=== PATIENT | male | born 1975 | race Caucasian/White ===

== ENCOUNTER 2021-10-22 10:16 | Outpatient (REF) | payer MEDICARE, MEDICAID, SELFPAY ==
[2021-10-22 13:22] LABS: MANUAL DIFF FLAG NO
[2021-10-22 13:32] LABS: Basophils Percent Auto 0.5 % (0-2); Eosinophils Absolute Auto 0.1 X10*3/uL (0.0-0.4); Eosinophils Percent Auto 0.9 % (0-4); Hematocrit 49.1 % (42.0-52.0); Hemoglobin 16.9 g/dl (14.0-18.0); Imm Gran Abs Auto 0.05 X10*3/uL (0.00-0.03); Imm Gran Pct Auto 0.6 % (0.0-0.4); Lymphocytes Absolute Auto 3.1 X10*3/uL (1.2-4.9); Lymphocytes Percent Auto 35.9 % (20-40); Mean Corpuscular HGB Conc 34.4 g/dl (31.0-36.0); Mean Corpuscular Hemoglobin 30.8 pg (27.0-33.0); Mean Corpuscular Volume 89.6 fL (80.0-98.0); Mean Platelet Volume 10.8 fL (9.4-12.4); Monocytes Absolute Auto 0.6 X10*3/uL (0.1-1.2); Monocytes Percent Auto 7.3 % (2-11); Neutrophils Absolute Auto 4.7 x10*3/uL (2.0-8.3); Neutrophils Percent Auto 54.8 % (45-73); Platelet Count 292 X10*3/uL (160-400); Red Blood Count 5.48 X10*6/uL (4.60-5.80); Red Cell Distribution Width 12.1 % (11.0-16.0); White Blood Count 8.5 X10*3/uL (4.8-10.8)
[2021-10-22 13:53] LABS: Alanine Aminotransferase 63 U/L (0-40); Albumin Level 4.6 g/dL (3.5-5.0); Alkaline Phosphatase 59 U/L (39-117); Anion Gap 13 (12-20); Aspartate Amino Transferase 37 U/L (5-37); Bilirubin Total 0.9 mg/dL (0.0-1.0); Blood Urea Nitrogen 17 mg/dL (9-16); Calcium 10.2 mg/dL (8.4-10.2); Carbon Dioxide 26 mmol/L (22-29); Chloride 104 mmol/L (96-108); Cholesterol 168 mg/dL; Estimated Glomerular Filt Rate > 60; Glucose Fasting 127 mg/dL (60-99); HDL Cholesterol 41 mg/dL; LDL Cholesterol Calculated 87 mg/dl; Potassium 4.2 mmol/L (3.3-5.1); Sodium 139 mmol/L (135-145); Total Protein 7.8 g/dL (6.5-8.0); Triglycerides 204 mg/dL
[2021-10-22 14:14] LABS: Prostate Specific Antigen Scr 1.07 ng/mL (<0.05-4.0)
== END 2021-10-22 10:17 | disposition home or self-care (01) ==
LOC: HO.10HDL 10:16
PROVIDERS: Visit Provider Internal Medicine
DX: Z00.00 Encounter for general adult medical examination without abnormal findings (principal); Z12.5 Encounter for screening for malignant neoplasm of prostate
CPT/HCPCS: 36415; 80053; 80061; 84153; 85025

== ENCOUNTER → 2021-11-13 15:09 | Outpatient (BNVA) | payer MEDICARE, MEDICAID, SELFPAY | PROVIDERS: PCP Internal Medicine; Referring Provider Internal Medicine; Visit Provider Surgery | DX: L98.9 Disorder of the skin and subcutaneous tissue, unspecified (principal) | CPT/HCPCS: 99202 ==

== ENCOUNTER 2021-12-10 07:52 | Outpatient (REF) | payer MEDICARE, MEDICAID, SELFPAY ==
[2021-12-10 08:00] VITALS: BMI 34.8
[2021-12-10 08:01] VITALS: BP 130/75; PULSE 94; RESP 16; TEMP 36.7; O2SAT 98
[2021-12-10 08:30] VITALS: BP 143/85; PULSE 93; RESP 16; O2SAT 98
--- NOTE | 2021-12-10 08:30 | W.PM.OPN ---
Operative Note Operative Note Date of Service: 12/10/21 Narrative: Preop diagnosis: Multiple skin lesions, around the neck neck, left chest wall, left and right axilla Postop diagnosis: As above Procedure: Excision x1 the chest wall, cauterization of multiple skin lesions, x8 on the left and right axilla and the neck under local anesthesia Surgeon: Migue Davila MD The patient is a 46-year-old male with note of multiple skin lesions on the left chest wall, neck and axilla. There was note of a 1 cm fibromatous lesion on the left chest wall. There multiple papillomatous lesions varying in size from about 4 mm to 2 mm, on the left and right axilla in the neck. He wanted to proceed with excision and cauterization. He is aware of the risks, benefits and alternatives . He was brought to the minor procedure room. He was placed. The lesion in the left chest wall was prepped and draped. Lidocaine 1% was used for local anesthesia. An elliptical incision around this 1 cm fibromatous lesion blade 15. This was carried down through the full-thickness skin and part of subcutaneous layer until this was completely excised. This was sent as specimen. I closed the incision with full-thickness nylon 3-0 interrupted sutures. Dressings were applied. The area of the left axilla was prepped and draped. There was note of a papillomatous lesion on the left axilla about 3 mm in size. This was excised using Metzenbaum scissors and the excision site was cauterized for hemostasis. This specimen was sent for pathology. were multiple other small papillomatous lesions about 1-2 mm in size which were cauterized as well. The area of the right axilla was also prepped and draped. Again I cauterized 2 lesions which were about 2-3 mm in size each. I then prepped and draped multiple skin lesions on around the neck. I infiltrated this with lidocaine 1% and cauterized all of these. All in all, about 8 lb were cauterized around the neck, left and right axilla. He tolerated procedure well. There were no complications noted. He will be seen in the office for follow-up for wound check discharge instructions were given.
== END 2021-12-10 07:53 | disposition home or self-care (01) ==
LOC: HO.MS 07:52
PROVIDERS: PCP Internal Medicine; Visit Provider Surgery
PROC: (CPT 17110; principal; 2021-12-10 08:00)
DX: D18.01 Hemangioma of skin and subcutaneous tissue (principal); L91.8 Other hypertrophic disorders of the skin; D23.5 Other benign neoplasm of skin of trunk
CPT/HCPCS: 17110; 11200; 11401; 88304; 88305

== ENCOUNTER → 2021-12-24 10:17 | Outpatient (BNVA) | payer MEDICARE, MEDICAID, SELFPAY | PROVIDERS: PCP Internal Medicine; Referring Provider Internal Medicine; Visit Provider Surgery | DX: L98.9 Disorder of the skin and subcutaneous tissue, unspecified (principal) | CPT/HCPCS: 99212 ==

== ENCOUNTER 2022-01-07 10:48 | Outpatient (REF) | payer MEDICARE, MEDICAID, SELFPAY ==
[2022-01-07 14:07] LABS: Estimated Average Glucose 154 mg/dL
[2022-01-07 14:10] LABS: Appearance Urine CLOUDY; Color Urine YELLOW; Glucose Urine UA 250 MG/DL (NEG); Leukocyte Esterase Urine NEG (NEG); Nitrite Urine NEG (NEG); Specific Gravity - Urine >= 1.030 (1.005-1.025); Urine Blood NEG (NEG); Urine Ketones NEG (NEG); Urine Protein NEG (NEG-TRACE)
[2022-01-07 14:13] LABS: Alanine Aminotransferase 51 U/L (0-40); Anion Gap 12 (12-20); Aspartate Amino Transferase 31 U/L (5-37); Blood Urea Nitrogen 15 mg/dL (9-16); Calcium 9.7 mg/dL (8.4-10.2); Carbon Dioxide 27 mmol/L (22-29); Chloride 104 mmol/L (96-108); Estimated Glomerular Filt Rate > 60; Glucose Random 167 mg/dL (60-115); Potassium 4.5 mmol/L (3.3-5.1); Sodium 138 mmol/L (135-145)
[2022-01-07 14:28] LABS: Creatinine Urine 173.44 mg/dL; Microalbum/Creatinine Ratio Ur 9.8 ug/mg cr
== END 2022-01-07 10:49 | disposition home or self-care (01) ==
LOC: HO.10HDL 10:48
PROVIDERS: Visit Provider Internal Medicine
DX: R73.03 Prediabetes (principal); M54.9 Dorsalgia, unspecified; K21.9 Gastro-esophageal reflux disease without esophagitis; R94.5 Abnormal results of liver function studies
CPT/HCPCS: 36415; 80048; 81003; 82043; 83036; 84450; 84460; 87086

== ENCOUNTER → 2023-03-04 10:32 | Outpatient (BNVA) | payer OTHER, SELFPAY | PROVIDERS: PCP Internal Medicine; Visit Provider Urology | DX: E11.69 Type 2 diabetes mellitus with other specified complication (principal); N52.1 Erectile dysfunction due to diseases classified elsewhere | CPT/HCPCS: 99202 ==

== ENCOUNTER 2023-06-08 09:01 | Outpatient (REF) | payer OTHER, SELFPAY ==
[2023-06-08 10:36] LABS: MANUAL DIFF FLAG NO
[2023-06-08 10:50] LABS: Basophils Absolute Auto 0.1 X10*3/uL (0.0-0.2); Basophils Percent Auto 0.7 % (0-2); Eosinophils Absolute Auto 0.1 X10*3/uL (0.0-0.4); Eosinophils Percent Auto 1.5 % (0-4); Hematocrit 48.4 % (42.0-52.0); Hemoglobin 16.6 g/dl (14.0-18.0); Imm Gran Abs Auto 0.03 X10*3/uL (0.00-0.03); Imm Gran Pct Auto 0.4 % (0.0-0.4); Lymphocytes Absolute Auto 2.5 X10*3/uL (1.2-4.9); Lymphocytes Percent Auto 35.2 % (20-40); Mean Corpuscular HGB Conc 34.3 g/dl (31.0-36.0); Mean Corpuscular Hemoglobin 30.5 pg (27.0-33.0); Mean Platelet Volume 10.3 fL (9.4-12.4); Monocytes Absolute Auto 0.6 X10*3/uL (0.1-1.2); Monocytes Percent Auto 7.6 % (2-11); Neutrophils Absolute Auto 3.9 x10*3/uL (2.0-8.3); Neutrophils Percent Auto 54.6 % (45-73); Platelet Count 243 X10*3/uL (160-400); Red Blood Count 5.44 X10*6/uL (4.60-5.80); Red Cell Distribution Width 12.1 % (11.0-16.0); White Blood Count 7.2 X10*3/uL (4.8-10.8)
[2023-06-08 11:14] LABS: Alanine Aminotransferase 23 U/L (0-40); Alkaline Phosphatase 48 U/L (39-117); Anion Gap 9 (12-20); Aspartate Amino Transferase 19 U/L (5-37); Bilirubin Total 0.7 mg/dL (0.0-1.0); Blood Urea Nitrogen 23 mg/dL (9-16); Carbon Dioxide 29 mmol/L (22-29); Chloride 106 mmol/L (96-108); Cholesterol 159 mg/dL; Estimated Glomerular Filt Rate > 60; Glucose Fasting 112 mg/dL (60-99); HDL Cholesterol 46 mg/dL; LDL Cholesterol Calculated 75 mg/dl; Potassium 4.3 mmol/L (3.3-5.1); Sodium 140 mmol/L (135-145); Total Protein 7.1 g/dL (6.5-8.0); Triglycerides 191 mg/dL
[2023-06-08 11:15] LABS: Estimated Average Glucose 105 mg/dL; Hemoglobin A1C 149.9812 umol/L; Hemoglobin A1c % 5.3 %
[2023-06-08 11:20] LABS: Prostate Specific Antigen 2.58 ng/mL (<0.05-4.0)
[2023-06-08 11:48] LABS: Creatinine Urine 145.58 mg/dL
[2023-06-13 13:17] LABS: Testosterone, Free 86.3 pg/mL (35.0-155.0); Testosterone, Total 464 ng/dL (250-1100)
== END 2023-06-08 09:02 | disposition home or self-care (01) ==
LOC: HO.10HDL 09:01
PROVIDERS: Absent Provider Internal Medicine; Visit Provider Urology
DX: Z00.00 Encounter for general adult medical examination without abnormal findings (principal); Z12.5 Encounter for screening for malignant neoplasm of prostate; E11.69 Type 2 diabetes mellitus with other specified complication; N52.1 Erectile dysfunction due to diseases classified elsewhere
CPT/HCPCS: 36415; 80053; 80061; 82043; 83036; 84153; 84402; 84403; 85025

== ENCOUNTER 2023-08-03 13:39 | Outpatient (AMB) | payer MEDICARE, SELFPAY ==
--- NOTE | 2023-08-03 14:25 | A.OFFVIS_ITS ---
Intake Intake Visit Reasons: 3M PSA/Testo(set) Intake Note: Patient is present for Telephone Urology Med:Tadalafil Antibiotic Allergy: None Blood Thinner: None Pharmacy: [facility] Allergies naproxen [Aleve] Allergy (Unknown, Verified 08/03/23 14:26) unknown Medication List - Last Reconciled 08/03/23 by Darryl Eubanks MD cyclobenzaprine 10 mg PO TID meloxicam 1 tab PO DAILY metformin 1 tab PO DAILY omeprazole 1 cap PO BID PRN tadalafil 5 mg PO DAILY 90 days tadalafil 20 mg PO ONCE PRN 30 days HPI HPI Comments History of Present Illness Details Brandon is a very pleasant male. . He is a patient of Dr. Feliciano . He is seen for the following urologic conditions - erectile dysfunction Telemedicine Evaluation 15 min Consultation [employer] Matt Video attempted Partial response Will increase to 20 mg on demand as well as 5 mg daily 3 month follow-up Erectile Dysfunction in association with diabetes He presents today for - followup evaluation erectile dysfunction Current treatment includes - [id number] At the time of initial evaluation he experiences - partial and adequate for vaginal penetration - under rapid detumescence Symptoms have been present for/since - progressive since age 46 Nocturnal erections do occur Associated Medical Conditions include diabetes Physical Performance Status is able to walk 200 yd and can ascend 2 flights of stairs easily without breathlessness Atherosclerosis Cardiovascular Disease Risk - not fully complete Medications include(s) metformin Investigations include HbA1c 7.0, 06/06 T4 60 for, free T 86, PSA 2.5 Therapeutic plan includes - continue daily tadalafil add on demand PFSH Medical History Back pain Diabetes Benign skin lesion of multiple sites Surgical History History of surgical removal of skin lesion (~12/10/21) Review of Systems Const All systems reviewed & are unremarkable except as noted in HPI and below Reports no additional complaints Resp Reports no additional complaints GI Reports no additional complaints Reports as per HPI Musc Reports no additional complaints Physical Exam Telemedicine evaluation Appropriate responses Regular breathing rate and rhythm HEENT Head: Yes normal to inspection Ears: hearing grossly normal bilaterally Eyes General: appearance normal, both eyes and all related structures Neck Neck: Yes normal visual inspection Chest Chest palpation & inspection: normal inspection of the chest Resp Effort & Inspection: normal respiratory effort and able to speak in complete sentences Assessment & Plan Assessment & Plan (1) Erectile dysfunction associated with type 2 diabetes mellitus: Code(s): E11.69 - Type 2 diabetes mellitus with other specified complication; N52.1 - Erectile dysfunction due to diseases classified elsewhere Plan Trial daily tadalafil with 20 mg on demand Medications: New tadalafil On demand medication take 60 minutes before intended activity 20 mg PO ONCE PRN 30 tabs 0RF sexual activity 30 days E11.69 - Type 2 diabetes mellitus with other specified complication, N52.1 - Erectile dysfunction due to diseases classified elsewhere Refilled tadalafil 5 mg PO DAILY 90 tabs 1RF sexual activity 90 days E11.69 - Type 2 diabetes mellitus with other specified complication, N52.1 - Erectile dysfunction due to diseases classified elsewhere Patient Instructions: Imaging studies, laboratory and physical exam results were discussed and reviewed in detail. No major barriers to patient understanding were identified. An opportunity to ask questions regarding the treatment plan was provided. All questions were answered. The patient expressed understanding and agreement with the above treatment plan. The patient is aware they should contact our office by phone for worsening of their current condition or the appearance of new urologic symptoms. Compliance is encouraged with any medications and followup testing that is ordered. It is a privilege to participate in the urologic care of your patient. If you have any questions or concerns regarding treatment for the above conditions, or other urologic issues, please do not hesitate to contact me. The office telephone contact is [phone]. This note is constructed using voice recognition software. While every effort has been made to ensure accuracy production planning manager errors may have been included. Yours sincerely, Dr Darryl Eubanks MD, [facility] - Urology Providers of Expert, Compassionate Care for the Genitourinary System Telehealth Telehealth Location of provider rendering services: practice address Location of patient: address on file Patient Identification confirmed using: Name, : Yes Telehealth method: video Patient verbally consented to treatment: Yes Patient verbally consented to billing insurance company: Yes Patient informed of any privacy concerns related to visit: Yes Coding Level of Care Code Tele Est Pt Level 4 (21985) Diagnoses Erectile dysfunction associated with type 2 diabetes mellitus E11.69; N52.1
== END 2023-08-03 16:07 | disposition home or self-care (01) ==
LOC: HO.HUSH 13:39
PROVIDERS: PCP Internal Medicine; Visit Provider Urology
DX: E11.69 Type 2 diabetes mellitus with other specified complication (principal); N52.1 Erectile dysfunction due to diseases classified elsewhere
CPT/HCPCS: 99214

== ENCOUNTER → 2023-08-03 13:39 | Outpatient (BNVA) | payer MEDICARE, SELFPAY | PROVIDERS: PCP Internal Medicine; Visit Provider Urology ==

== ENCOUNTER 2023-11-03 12:29 | Outpatient (AMB) | payer MEDICARE, MEDICAID, SELFPAY ==
--- NOTE | 2023-11-03 12:29 | A.OFFVIS_ITS ---
Intake Intake Visit Reasons: 3 month (per Dr Meneses) Intake Note: Patient is Present for Telephone Follow Up Urology Med: Tadalafil 5 MG/ 20MG Antibiotic Allergy: None Blood Thinner: None Allergies naproxen [Aleve] Allergy (Unknown, Verified 11/03/23 12:30) unknown Medication List - Last Reconciled 11/03/23 by Darryl Meneses MD cyclobenzaprine 10 mg PO TID meloxicam 1 tab PO DAILY metformin 1 tab PO DAILY omeprazole 1 cap PO BID PRN tadalafil 5 mg PO DAILY 90 days tadalafil 20 mg PO ONCE PRN 30 days HPI HPI Comments History of Present Illness Details Brandon is a very pleasant male. . He is a patient of Dr. Feliciano . He is seen for the following urologic conditions - erectile dysfunction Telemedicine Evaluation 15 min Consultation [employer] Matt Video attempted Follow-up 5 mg daily tadalafil with on demand 20mg Good response Refills provided 6 month follow-up Erectile Dysfunction in association with diabetes He presents today for - followup evaluation erectile dysfunction Current treatment includes - [id number] At the time of initial evaluation he experiences - partial and adequate for vaginal penetration - under rapid detumescence Symptoms have been present for/since - progressive since age 46 Nocturnal erections do occur Associated Medical Conditions include diabetes Physical Performance Status is able to walk 200 yd and can ascend 2 flights of stairs easily without breathlessness Atherosclerosis Cardiovascular Disease Risk - not fully complete Medications include(s) metformin Investigations include HbA1c 7.0, 06/06 T460 for, free T 86, PSA 2.5 Therapeutic plan includes - continue daily tadalafil add on demand PFS Medical History Back pain Diabetes Benign skin lesion of multiple sites Surgical History History of surgical removal of skin lesion (~12/10/21) Review of Systems Const All systems reviewed & are unremarkable except as noted in HPI and below Reports no additional complaints Resp Reports no additional complaints GI Reports no additional complaints Reports as per HPI Musc Reports no additional complaints Physical Exam Telemedicine evaluation Appropriate responses Regular breathing rate and rhythm HEENT Head: Yes normal to inspection Ears: hearing grossly normal bilaterally Eyes General: appearance normal, both eyes and all related structures Neck Neck: Yes normal visual inspection Chest Chest palpation & inspection: normal inspection of the chest Resp Effort & Inspection: normal respiratory effort and able to speak in complete sentences Assessment & Plan Assessment & Plan (1) Erectile dysfunction associated with type 2 diabetes mellitus: Code(s): E11.69 - Type 2 diabetes mellitus with other specified complication; N52.1 - Erectile dysfunction due to diseases classified elsewhere Plan Six month follow-up Medications: Refilled tadalafil On demand medication take 60 minutes before intended activity 20 mg PO ONCE 30 days PRN 30 tabs 2RF sexual activity E11.69 - Type 2 diabetes mellitus with other specified complication, N52.1 - Erectile dysfunction due to diseases classified elsewhere Patient Instructions: Imaging studies, laboratory and physical exam results were discussed and reviewed in detail. No major barriers to patient understanding were identified. An opportunity to ask questions regarding the treatment plan was provided. All questions were answered. The patient expressed understanding and agreement with the above treatment plan. The patient is aware they should contact our office by phone for worsening of their current condition or the appearance of new urologic symptoms. Compliance is encouraged with any medications and followup testing that is ordered. It is a privilege to participate in the urologic care of your patient. If you have any questions or concerns regarding treatment for the above conditions, or other urologic issues, please do not hesitate to contact me. The office telephone contact is [phone]. This note is constructed using voice recognition software. While every effort has been made to ensure accuracy movement assembly final inspector errors may have been included. Yours sincerely, Dr Darryl Meneses MD, [facility] - Urology Providers of Expert, Compassionate Care for the Genitourinary System Telehealth Telehealth Location of provider rendering services: practice address Location of patient: address on file Patient Identification confirmed using: Name, : Yes Telehealth method: video Patient verbally consented to treatment: Yes Patient verbally consented to billing insurance company: Yes Patient informed of any privacy concerns related to visit: Yes Coding Level of Care Code Tele Est Pt Level 3 (67217) Diagnoses Erectile dysfunction associated with type 2 diabetes mellitus E11.69; N52.1
== END 2023-11-03 15:18 | disposition home or self-care (01) ==
LOC: HO.HUSH 12:29
PROVIDERS: PCP Internal Medicine; Visit Provider Urology
DX: E11.69 Type 2 diabetes mellitus with other specified complication (principal); N52.1 Erectile dysfunction due to diseases classified elsewhere
CPT/HCPCS: 99213

== ENCOUNTER → 2023-11-03 12:29 | Outpatient (BNVA) | payer MEDICARE, SELFPAY | PROVIDERS: PCP Internal Medicine; Visit Provider Urology ==

== ENCOUNTER 2024-05-05 13:39 | Outpatient (AMB) | payer MEDICARE, SELFPAY ==
--- NOTE | 2024-05-05 13:35 | MHC.OFFVIS ---
Intake Visit Reasons: 6m follow up Intake Note: Pt presents to the office as a telehealth for a 6 month follow up. Urology meds: Tadalafil Blood thinners: None Allergies naproxen [Aleve] Allergy (Unknown, Verified 05/05/24 13:35) unknown HPI Comments Details: Brandon is a very pleasant male. . He is a patient of Dr. Feliciano . He is seen for the following urologic conditions - erectile dysfunction Telemedicine Evaluation 15 min Consultation [employer] Matt Video attempted Follow-up 5 mg daily tadalafil with on demand 20mg Good response Refills provided 6 month follow-up labs/office - prior PSA elevated Erectile Dysfunction in association with diabetes He presents today for - followup evaluation erectile dysfunction Current treatment includes - [id number] At the time of initial evaluation he experiences - partial and adequate for vaginal penetration - under rapid detumescence Symptoms have been present for/since - progressive since age 46 Nocturnal erections do occur Associated Medical Conditions include diabetes Physical Performance Status is able to walk 200 yd and can ascend 2 flights of stairs easily without breathlessness Atherosclerosis Cardiovascular Disease Risk - not fully complete Medications include(s) metformin Investigations include HbA1c 7.0, 06/06 T460 for, free T 86, PSA 2.5 Therapeutic plan includes - continue daily tadalafil add on demand PFSH Medical History Back pain Diabetes Benign skin lesion of multiple sites Surgical History History of surgical removal of skin lesion (~12/10/21) Review of Systems Const All systems reviewed & are unremarkable except as noted in HPI and below Reports no additional complaints Resp Reports no additional complaints GI Reports no additional complaints Reports as per HPI Musc Reports no additional complaints Physical Exam Telemedicine evaluation Appropriate responses Regular breathing rate and rhythm HEENT Head: Yes normal to inspection Ears: hearing grossly normal bilaterally Eyes General: appearance normal, both eyes and all related structures Neck Neck: Yes normal visual inspection Chest Chest palpation & inspection: normal inspection of the chest Resp Effort & Inspection: normal respiratory effort and able to speak in complete sentences Telehealth Telehealth Telehealth Platform: [employer] Location of provider rendering services: practice address Location of patient: address on file Patient Identification confirmed using: Name, : Yes Telehealth method: video Patient verbally consented to treatment: Yes Patient verbally consented to billing insurance company: Yes Patient informed of any privacy concerns related to visit: Yes Minutes spent on Phone/Video with Pt.: 15 Assessment & Plan Assessment & Plan (1) Erectile dysfunction associated with type 2 diabetes mellitus: Code(s): E11.69 - Type 2 diabetes mellitus with other specified complication; N52.1 - Erectile dysfunction due to diseases classified elsewhere Category: Medical Plan Six month follow-up labs office Orders: Orders Prostate Specific Antigen 6 Months E11.69 - Type 2 diabetes mellitus with other specified complication, N52.1 - Erectile dysfunction due to diseases classified elsewhere Testosterone, Total 6 Months E11.69 - Type 2 diabetes mellitus with other specified complication, N52.1 - Erectile dysfunction due to diseases classified elsewhere Medications: Refilled tadalafil 5 mg PO DAILY 90 days 90 tabs 1RF sexual activity E11.69 - Type 2 diabetes mellitus with other specified complication, N52.1 - Erectile dysfunction due to diseases classified elsewhere tadalafil On demand medication take 60 minutes before intended activity 20 mg PO ONCE 30 days PRN 30 tabs 2RF sexual activity E11.69 - Type 2 diabetes mellitus with other specified complication, N52.1 - Erectile dysfunction due to diseases classified elsewhere Patient Instructions: Imaging studies, laboratory and physical exam results were discussed and reviewed in detail. No major barriers to patient understanding were identified. An opportunity to ask questions regarding the treatment plan was provided. All questions were answered. The patient expressed understanding and agreement with the above treatment plan. The patient is aware they should contact our office by phone for worsening of their current condition or the appearance of new urologic symptoms. Compliance is encouraged with any medications and followup testing that is ordered. It is a privilege to participate in the urologic care of your patient. If you have any questions or concerns regarding treatment for the above conditions, or other urologic issues, please do not hesitate to contact me. The office telephone contact is [phone]. This note is constructed using voice recognition software. While every effort has been made to ensure accuracy director non profit errors may have been included. Yours sincerely, Dr Darryl Eubanks MD, [facility] - Urology Providers of Expert, Compassionate Care for the Genitourinary System Coding Level of Care Code Tele Est Pt Level 3 (68052) Diagnoses Erectile dysfunction associated with type 2 diabetes mellitus E11.69; N52.1
== END 2024-05-05 14:13 | disposition home or self-care (01) ==
PROVIDERS: PCP Internal Medicine; Visit Provider Urology
DX: E11.69 Type 2 diabetes mellitus with other specified complication (principal); N52.1 Erectile dysfunction due to diseases classified elsewhere
CPT/HCPCS: 99213

== ENCOUNTER → 2024-05-05 13:39 | Outpatient (BNVA) | payer MEDICARE, SELFPAY | PROVIDERS: PCP Internal Medicine; Visit Provider Urology ==

== ENCOUNTER 2024-05-12 08:09 | Outpatient (REF) | payer MEDICARE, SELFPAY ==
[2024-05-12 09:53] LABS: MANUAL DIFF FLAG NO
[2024-05-12 09:55] LABS: Basophils Absolute Auto 0.1 X10*3/uL (0.0-0.2); Basophils Percent Auto 0.7 % (0-2); Eosinophils Absolute Auto 0.2 X10*3/uL (0.0-0.4); Eosinophils Percent Auto 2.2 % (0-4); Hematocrit 45.9 % (42.0-52.0); Hemoglobin 16.1 g/dl (14.0-18.0); Imm Gran Abs Auto 0.04 X10*3/uL (0.00-0.03); Imm Gran Pct Auto 0.6 % (0.0-0.4); Lymphocytes Absolute Auto 2.9 X10*3/uL (1.2-4.9); Lymphocytes Percent Auto 42.8 % (20-40); Mean Corpuscular HGB Conc 35.1 g/dl (31.0-36.0); Mean Corpuscular Volume 88.4 fL (80.0-98.0); Mean Platelet Volume 9.5 fL (9.4-12.4); Monocytes Absolute Auto 0.5 X10*3/uL (0.1-1.2); Monocytes Percent Auto 7.7 % (2-11); Neutrophils Absolute Auto 3.2 x10*3/uL (2.0-8.3); Platelet Count 245 X10*3/uL (160-400); Red Blood Count 5.19 X10*6/uL (4.60-5.80); Red Cell Distribution Width 12.3 % (11.0-16.0); White Blood Count 6.9 X10*3/uL (4.8-10.8)
[2024-05-12 09:57] LABS: Appearance Urine Clear; Color Urine Yellow; Glucose Urine UA Negative (Negative); Leukocyte Esterase Urine Negative (Negative); Nitrite Urine Negative (Negative); Specific Gravity - Urine 1.025 (1.005-1.025); UMIC TRIGGER UA YES; Urine Blood Small (1+) (Negative); Urine Ketones Negative (Negative); Urine Protein >=1000 (4+) mg/dL (Neg-Trace)
[2024-05-12 10:13] LABS: Estimated Average Glucose 120 mg/dL; Hemoglobin A1c % 5.8 % (<6.0)
[2024-05-12 10:31] LABS: Bacteria Urine None Seen (None Seen); Hyaline Casts Urine 0-2 /LPF (0-2); RBC Urine 0-2 /HPF (0-2); Squamous Epithelial Cell Urine 0-2 /HPF (0-2); WBC Urine 0-5 /HPF (0-5)
[2024-05-12 10:46] LABS: Creatinine Urine 202.57 mg/dL
[2024-05-12 10:52] LABS: Alanine Aminotransferase 17 U/L (0-40); Albumin Level 2.9 g/dL (3.5-5.0); Alkaline Phosphatase 48 U/L (39-117); Anion Gap 9 (12-20); Aspartate Amino Transferase 17 U/L (5-37); Bilirubin Total 0.4 mg/dL (0.0-1.0); Blood Urea Nitrogen 17 mg/dL (9-16); C Reactive Protein 0.11 mg/dL (< or = 0.50); Calcium 8.3 mg/dL (8.4-10.2); Carbon Dioxide 30 mmol/L (22-29); Chloride 108 mmol/L (96-108); Cholesterol 231 mg/dL (<200); Estimated Glomerular Filt Rate > 60; Glucose Fasting 121 mg/dL (60-99); HDL Cholesterol 58 mg/dL (>40); LDL Cholesterol Calculated 124 mg/dL (<100); Sodium 143 mmol/L (135-145); Total Protein 5.7 g/dL (6.5-8.0); Triglycerides 245 mg/dL (<150)
[2024-05-12 11:01] LABS: Microalbum/Creatinine Ratio Ur 987.3 ug/mg cr (<30); Microalbumin Urine > 2000.0 mg/L
[2024-05-12 11:19] LABS: Prostate Specific Antigen Scr 1.99 ng/mL (<0.05-4.0)
== END 2024-05-12 08:10 | disposition home or self-care (01) ==
LOC: HO.10HDL 08:09
PROVIDERS: Visit Provider Internal Medicine
DX: R73.03 Prediabetes (principal); K21.9 Gastro-esophageal reflux disease without esophagitis; M54.9 Dorsalgia, unspecified; Z12.5 Encounter for screening for malignant neoplasm of prostate
CPT/HCPCS: 36415; 80053; 80061; 81001; 82043; 82570; 83036; 84153; 85025; 86140